=== PATIENT | female | born 1945 | race Asian ===

== ENCOUNTER 2019-02-24 13:29 | Inpatient (IN) | payer OTHER ==
[2019-02-24 14:47] LABS: ADD MAN DIFF? NO
[2019-02-24 14:52] LABS: BASOPHILS % 0.3 % (0.0-2.0); EOSINOPHILS # 0.1 10^3/ul (0.0-0.5); EOSINOPHILS % 0.8 % (0.0-7.0); HEMATOCRIT 27.7 % (37.0-47.0); HEMOGLOBIN 8.6 g/dl (12.0-16.0); LYMPHOCYTES # 2.1 10^3/ul (0.8-2.9); LYMPHOCYTES % 34.6 % (15.0-51.0); MEAN CORPUSCULAR HEMOGLOBIN 19.5 pg (29.0-33.0); MEAN PLATELET VOLUME 10.6 fl (7.4-10.4); MONOCYTE # 0.4 10^3/ul (0.3-0.9); MONOCYTES % 7.4 % (0.0-11.0); NEUTROPHIL # 3.4 10^3/ul (1.6-7.5); NEUTROPHILS % 56.6 % (39.0-77.0); PLATELET COUNT 343 10^3/UL (140-415); RED CELL DISTRIBUTION WIDTH 16.9 % (11.5-14.5)
[2019-02-24 14:57] LABS: POSITIVE DIFF @See below
[2019-02-24 15:12] LABS: ANION GAP 13 (5-13); BLOOD UREA NITROGEN 39 mg/dl (7-20); CALCIUM 9.8 mg/dl (8.4-10.2); CARBON DIOXIDE 34 mmol/L (21-31); CHLORIDE 97 mmol/L (97-110); GLUCOSE 108 mg/dl (70-220); SODIUM 144 mmol/L (135-144)
[2019-02-24 15:21] LABS: POTASSIUM 2.5 mmol/L (3.5-5.1)
[2019-02-24 15:23] LABS: TROPONIN-I 0.031 ng/ml (0.000-0.120)
[2019-02-24] MEDS: POTASSIUM CHLORIDE 100 ML IVPB (15:50)
[2019-02-24] MEDS: POTASSIUM CHLORIDE (SR) 20 MEQ TAB PO (15:50)
[2019-02-24] MEDS ORDERED: ACETAMINOPHEN 325 MG TAB PO (17:00)
[2019-02-24] MEDS ORDERED: ONDANSETRON 4 MG INJ IV ×2 (17:00→19:30)
[2019-02-24] MEDS: LABETALOL HCL 20MG INJ IV (18:22)
[2019-02-24] MEDS: SOD CHLORIDE 0.9% 1,000 ML IV (18:22)
[2019-02-24] MEDS ORDERED: BISACODYL (EC) 5 MG TAB PO (19:30)
[2019-02-24] MEDS ORDERED: ACETAMINOPHEN 650 MG SUPP PR (19:30)
[2019-02-24] MEDS ORDERED: DOCUSATE SODIUM 100 MG CAP PO (19:30)
[2019-02-24] MEDS ORDERED: MAGNESIUM HYDROXIDE 30ML CUP PO (19:30)
[2019-02-24] MEDS ORDERED: NACL 0.9% 3 ML SYG IV (19:30)
[2019-02-24 20:23] LABS: PARATHYROID HORMONE INTACT 177.4 pg/ml (7.5-53.5)
[2019-02-24] MEDS: hydrALAzine 20 MG INJ IV (21:47)
[2019-02-24] MEDS: NS + KCL 20 MEQ 1,000 ML IV (21:50)
[2019-02-25 00:54] LABS: ADD UMIC YES; UR ASCORBIC ACID NEGATIVE (NEGATIVE); UR BACTERIA FEW /HPF (NONE SEEN); UR BILIRUBIN (Dip) NEGATIVE (NEGATIVE); UR BLOOD (Dip) 1+ mg/dL (NEGATIVE); UR CLARITY CLEAR (CLEAR); UR COLOR COLORLESS (YELLOW); UR GLUCOSE (Dip) 1+ mg/dL (NEGATIVE); UR KETONES (Dip) NEGATIVE (NEGATIVE); UR LEUKOCYTE ESTERASE (Dip) NEGATIVE Leu/ul (NEGATIVE); UR NITRITE (Dip) NEGATIVE (NEGATIVE); UR RBC 14 /HPF (0-5); UR SPECIFIC GRAVITY (Dip) 1.005 (1.003-1.030); UR TOTAL PROTEIN (Dip) 1+ mg/dl (NEGATIVE); UR UROBILINOGEN (Dip) NEGATIVE (NEGATIVE); UR WBC 0 /HPF (0-5)
[2019-02-25 01:28] LABS: CREATININE,URINE RANDOM 15.09 mg/dl (20-320); PROTEIN/CREAT RATIO 5.43 RATIO
[2019-02-25 01:30] LABS: CREATININE,URINE RANDOM 14.88 mg/dl (20-320)
[2019-02-25 01:30] LABS: SODIUM,URINE RANDOM 96 mmol/L (30-90)
[2019-02-25 02:46] LABS: OSMOLALITY,URINE 270 mOsm/kg (250-1200)
[2019-02-25] MEDS: PANTOPRAZOLE (EC) 40 MG TAB PO (05:03)
[2019-02-25 08:21] LABS: ADD MAN DIFF? NO
[2019-02-25 08:25] LABS: BASOPHIL # 0.1 10^3/ul (0.0-0.1); BASOPHILS % 1.2 % (0.0-2.0); HEMOGLOBIN 7.8 g/dl (12.0-16.0); LYMPHOCYTES # 1.4 10^3/ul (0.8-2.9); LYMPHOCYTES % 35.8 % (15.0-51.0); MEAN CORPUSCULAR HEMOGLOBIN 19.5 pg (29.0-33.0); MEAN CORPUSCULAR HGB CONC 31.2 g/dl (32.0-37.0); MEAN CORPUSCULAR VOLUME 62.5 fl (82.0-101.0); MEAN PLATELET VOLUME 9.9 fl (7.4-10.4); MONOCYTE # 0.4 10^3/ul (0.3-0.9); MONOCYTES % 10.2 % (0.0-11.0); NEUTROPHIL # 2.1 10^3/ul (1.6-7.5); NEUTROPHILS % 51.8 % (39.0-77.0); PLATELET COUNT 345 10^3/UL (140-415); RED CELL DISTRIBUTION WIDTH 16.8 % (11.5-14.5)
[2019-02-25] MEDS: AMLODIPINE 5 MG TAB PO ×2 (08:34→20:48)
[2019-02-25] MEDS: LOSARTAN 50 MG TAB PO (08:34)
[2019-02-25] MEDS: hydrALAzine 20 MG INJ IV ×2 (08:34→17:01)
[2019-02-25 08:50] LABS: ALANINE AMINOTRANSFERASE 12 IU/L (13-69); ALBUMIN 3.8 g/dl (3.3-4.9); ALKALINE PHOSPHATASE 73 IU/L (42-121); ANION GAP 10 (5-13); ASPARTATE AMINO TRANSFERASE 32 IU/L (15-46); BILIRUBIN,INDIRECT 0.5 mg/dl (0-1.1); BILIRUBIN,TOTAL 0.5 mg/dl (0.2-1.3); BLOOD UREA NITROGEN 34 mg/dl (7-20); CALCIUM 9.5 mg/dl (8.4-10.2); CARBON DIOXIDE 31 mmol/L (21-31); CHLORIDE 107 mmol/L (97-110); CHOL/HDL RATIO 3.4 RATIO; CHOLESTEROL 212 mg/dl (100-200); CREATININE 1.81 mg/dl (0.44-1.00); GLUCOSE 95 mg/dl (70-220); HDL CHOLESTEROL 61 mg/dl (33-92); LDL CHOLESTEROL,CALCULATED 134 mg/dl; SODIUM 148 mmol/L (135-144); TOTAL PROTEIN 7.6 g/dl (6.1-8.1); TRIGLYCERIDES 86 mg/dl (0-149)
[2019-02-25 08:53] LABS: POTASSIUM 2.7 mmol/L (3.5-5.1)
[2019-02-25] MEDS: POTASSIUM CHLORIDE (SR) 20 MEQ TAB PO ×2 (10:34→21:09)
[2019-02-25] MEDS: POTASSIUM CHLORIDE 100 ML IVPB ×3 (11:30→17:06)
[2019-02-25] MEDS: NS + KCL 20 MEQ 1,000 ML IV ×2 (11:50→17:06)
[2019-02-25 18:09] LABS: POTASSIUM,URINE RANDOM 25.8 mmol/L (25-125)
[2019-02-25 19:47] LABS: POTASSIUM 2.8 mmol/L (3.5-5.1)
[2019-02-26] MEDS: hydrALAzine 20 MG INJ IV (03:44)
[2019-02-26] MEDS: PANTOPRAZOLE (EC) 40 MG TAB PO (05:11)
[2019-02-26 07:47] LABS: ANION GAP 8 (5-13); BLOOD UREA NITROGEN 31 mg/dl (7-20); CALCIUM 9.1 mg/dl (8.4-10.2); CARBON DIOXIDE 28 mmol/L (21-31); CHLORIDE 110 mmol/L (97-110); GLUCOSE 106 mg/dl (70-220); SODIUM 146 mmol/L (135-144)
[2019-02-26 07:53] LABS: POTASSIUM 2.8 mmol/L (3.5-5.1)
[2019-02-26] MEDS: POTASSIUM CHLORIDE (SR) 20 MEQ TAB PO ×2 (08:44→20:34)
[2019-02-26] MEDS: LOSARTAN 50 MG TAB PO (08:46)
[2019-02-26] MEDS: AMLODIPINE 5 MG TAB PO ×2 (08:46→20:35)
[2019-02-26] MEDS: POTASSIUM CHLORIDE 100 ML IVPB ×3 (12:12→17:56)
[2019-02-26 17:30] LABS: MAGNESIUM 1.9 mg/dl (1.7-2.5)
[2019-02-26] MEDS: NS + KCL 20 MEQ 1,000 ML IV (21:10)
[2019-02-27] MEDS: PANTOPRAZOLE (EC) 40 MG TAB PO (05:00)
[2019-02-27] MEDS: NS + KCL 20 MEQ 1,000 ML IV (05:01)
[2019-02-27 06:38] LABS: ADD MAN DIFF? NO
[2019-02-27 06:40] LABS: WHITE BLOOD COUNT 6.1 10^3/ul (4.8-10.8)
[2019-02-27 06:40] LABS: BASOPHILS % 0.3 % (0.0-2.0); EOSINOPHILS # 0.1 10^3/ul (0.0-0.5); EOSINOPHILS % 1.5 % (0.0-7.0); HEMOGLOBIN 7.5 g/dl (12.0-16.0); LYMPHOCYTES # 1.9 10^3/ul (0.8-2.9); LYMPHOCYTES % 31.3 % (15.0-51.0); MEAN CORPUSCULAR HEMOGLOBIN 19.3 pg (29.0-33.0); MEAN CORPUSCULAR HGB CONC 31.3 g/dl (32.0-37.0); MEAN CORPUSCULAR VOLUME 61.9 fl (82.0-101.0); MEAN PLATELET VOLUME 10.2 fl (7.4-10.4); MONOCYTE # 0.5 10^3/ul (0.3-0.9); MONOCYTES % 7.7 % (0.0-11.0); NEUTROPHIL # 3.6 10^3/ul (1.6-7.5); PLATELET COUNT 329 10^3/UL (140-415); RED BLOOD COUNT 3.88 10^6/ul (4.20-5.40); RED CELL DISTRIBUTION WIDTH 17.6 % (11.5-14.5)
[2019-02-27 07:09] LABS: IRON 66 ug/dl (35-150)
[2019-02-27 07:18] LABS: % IRON SATURATION 26 % SAT (22-52); TOTAL IRON BINDING CAPACITY 252 ug/dl (241-421)
[2019-02-27 07:22] LABS: ANION GAP 9 (5-13); BLOOD UREA NITROGEN 25 mg/dl (7-20); CALCIUM 9.3 mg/dl (8.4-10.2); CARBON DIOXIDE 24 mmol/L (21-31); CHLORIDE 114 mmol/L (97-110); CREATININE 1.95 mg/dl (0.44-1.00); GLUCOSE 103 mg/dl (70-220); POTASSIUM 3.5 mmol/L (3.5-5.1); SODIUM 147 mmol/L (135-144)
[2019-02-27 07:50] LABS: IONIZED CALCIUM 1.3 mmol/L (1.1-1.4)
[2019-02-27] MEDS: ENOXAPARIN 30 MG/0.3 ML SYG SC (09:00)
[2019-02-27] MEDS: LOSARTAN 50 MG TAB PO (09:24)
[2019-02-27] MEDS: AMLODIPINE 5 MG TAB PO ×2 (09:24→20:33)
[2019-02-27] MEDS: POTASSIUM CHLORIDE (SR) 20 MEQ TAB PO ×3 (09:24→20:33)
[2019-02-27] MEDS: hydrALAzine 20 MG INJ IV (11:37)
[2019-02-27 15:17] LABS: HAAIG REFLEX REFLEX FILED
[2019-02-27 16:03] LABS: COMPLEMENT C3 79 mg/dl (88-165); COMPLEMENT C4 31 mg/dl (14-44)
[2019-02-27 16:25] LABS: ERYTHROCYTE SEDIMENTATION RATE 45 mm/Hr (0-30)
[2019-02-27 16:26] LABS: HEPATITIS B SURFACE ANTIGEN NEGATIVE (NEGATIVE)
[2019-02-27 16:44] LABS: HEPATITIS B CORE ANTIBODY REACTIVE (NEGATIVE); HEPATITIS C VIRAL ANTIBODY NEGATIVE (NEGATIVE)
[2019-02-27] MEDS: SOD FERRIC GLUC COMPLX 125 MG in SOD CHLORIDE 0.9% 100 ML IVPB (17:18)
[2019-02-27] MEDS: EPOETIN ALFA-EPBX (ESRD) 4,000 UNIT/ML VIAL SC (17:28)
[2019-02-27 18:19] LABS: COLLECTION PERIOD 24 hrs
[2019-02-27 18:59] LABS: URINE POTASSIUM 25.4 mmol/l
[2019-02-27 19:01] LABS: URINE POTASSIUM 25.7 mmol/l
[2019-02-27 19:07] LABS: VOLUME 3100 mls
[2019-02-27 19:50] LABS: 24 HR POTASSIUM VOLUME 3100 mls; VOLUME 3100 mls
[2019-02-28] MEDS: PANTOPRAZOLE (EC) 40 MG TAB PO (05:04)
[2019-02-28 06:21] LABS: PROTEIN, TOTAL 7.1 g/dL (6.1-8.1)
[2019-02-28 08:17] LABS: ADD MAN DIFF? NO
[2019-02-28 08:19] LABS: BASOPHILS % 0.5 % (0.0-2.0); EOSINOPHILS # 0.1 10^3/ul (0.0-0.5); EOSINOPHILS % 1.1 % (0.0-7.0); HEMATOCRIT 24.4 % (37.0-47.0); HEMOGLOBIN 7.6 g/dl (12.0-16.0); LYMPHOCYTES # 1.9 10^3/ul (0.8-2.9); LYMPHOCYTES % 28.5 % (15.0-51.0); MEAN CORPUSCULAR HEMOGLOBIN 19.3 pg (29.0-33.0); MEAN CORPUSCULAR HGB CONC 31.1 g/dl (32.0-37.0); MEAN CORPUSCULAR VOLUME 62.1 fl (82.0-101.0); MONOCYTE # 0.5 10^3/ul (0.3-0.9); NEUTROPHIL # 4.1 10^3/ul (1.6-7.5); NEUTROPHILS % 62.6 % (39.0-77.0); PLATELET COUNT 327 10^3/UL (140-415); RED BLOOD COUNT 3.93 10^6/ul (4.20-5.40); RED CELL DISTRIBUTION WIDTH 17.2 % (11.5-14.5)
[2019-02-28 08:19] LABS: WHITE BLOOD COUNT 6.6 10^3/ul (4.8-10.8)
[2019-02-28 08:49] LABS: ANION GAP 11 (5-13); BLOOD UREA NITROGEN 29 mg/dl (7-20); CALCIUM 9.8 mg/dl (8.4-10.2); CARBON DIOXIDE 22 mmol/L (21-31); CHLORIDE 111 mmol/L (97-110); CREATININE 1.97 mg/dl (0.44-1.00); GLUCOSE 97 mg/dl (70-220); SODIUM 144 mmol/L (135-144)
[2019-02-28] MEDS: AMLODIPINE 5 MG TAB PO ×2 (08:58→20:48)
[2019-02-28] MEDS: LOSARTAN 50 MG TAB PO (08:58)
[2019-02-28] MEDS: POTASSIUM CHLORIDE (SR) 20 MEQ TAB PO ×3 (08:58→20:48)
[2019-02-28] MEDS: ENOXAPARIN 30 MG/0.3 ML SYG SC (09:02)
[2019-02-28] MEDS: SOD FERRIC GLUC COMPLX 125 MG in SOD CHLORIDE 0.9% 100 ML IVPB (13:16)
[2019-02-28 15:21] LABS: RAPID PLASMA REAGIN NONREACTIVE (NR)
[2019-02-28] MEDS: hydrALAzine 20 MG INJ IV (16:00)
[2019-03-01] MEDS: PANTOPRAZOLE (EC) 40 MG TAB PO (05:55)
[2019-03-01] MEDS: AMLODIPINE 5 MG TAB PO ×2 (09:16→20:43)
[2019-03-01] MEDS: LOSARTAN 50 MG TAB PO (09:17)
[2019-03-01] MEDS: POTASSIUM CHLORIDE (SR) 20 MEQ TAB PO ×3 (09:17→20:43)
[2019-03-01] MEDS: ENOXAPARIN 30 MG/0.3 ML SYG SC (09:19)
[2019-03-01] MEDS: SOD FERRIC GLUC COMPLX 125 MG in SOD CHLORIDE 0.9% 100 ML IVPB (12:51)
[2019-03-01 14:56] LABS: CHLORIDE, RANDOM URINE 83 mmol/L (32-290)
[2019-03-01 19:24] LABS: PROTIME 12.3 Sec (11.9-14.9)
[2019-03-01 19:25] LABS: PARTIAL THROMBOPLASTIN TIME 37.5 Sec (23.0-35.0)
[2019-03-01 20:27] LABS: ANA SCREEN NEGATIVE (NEGATIVE)
[2019-03-02] MEDS: PANTOPRAZOLE (EC) 40 MG TAB PO (06:00)
[2019-03-02] MEDS: POTASSIUM CHLORIDE (SR) 20 MEQ TAB PO ×3 (09:35→20:33)
[2019-03-02] MEDS: AMLODIPINE 5 MG TAB PO ×2 (09:36→20:32)
[2019-03-02] MEDS: LOSARTAN 50 MG TAB PO (09:37)
[2019-03-02 11:11] LABS: ALDOSTERONE 5 ng/dL
[2019-03-02] MEDS: SOD CHLORIDE 0.9% 500 ML (12:20)
[2019-03-02] MEDS: LIDOCAINE 1% (MDV) 20 ML INJ (12:30)
[2019-03-02] MEDS: FENTAnyl 50 MCG/ML VIAL (12:30)
[2019-03-02] MEDS: MIDAZOLAM 1 MG/ML 2 ML INJ (12:32)
[2019-03-02] MEDS: GELATIN 12MM X 7 MM SPONGE (13:00)
[2019-03-02] MEDS: SOD FERRIC GLUC COMPLX 125 MG in SOD CHLORIDE 0.9% 100 ML IVPB (13:56)
[2019-03-02 15:14] LABS: ALBUMIN 3.8 g/dL (3.8-4.8); ALPHA-1-GLOBULINS 0.3 g/dL (0.2-0.3); ALPHA-2-GLOBULINS 0.7 g/dL (0.5-0.9); BETA 2 GLOBULINS 0.4 g/dL (0.2-0.5); BETA GLOBULINS 0.4 g/dL (0.4-0.6); GAMMA GLOBULINS 1.6 g/dL (0.8-1.7)
[2019-03-02] MEDS: ACETAMINOPHEN 325 MG TAB PO (18:06)
[2019-03-02 18:44] LABS: HEMATOCRIT 23.1 % (37.0-47.0); HEMOGLOBIN 7.4 g/dl (12.0-16.0)
[2019-03-03 05:41] LABS: ADD MAN DIFF? NO
[2019-03-03 05:44] LABS: WHITE BLOOD COUNT 7.8 10^3/ul (4.8-10.8)
[2019-03-03 05:45] LABS: BASOPHILS % 0.4 % (0.0-2.0); EOSINOPHILS # 0.1 10^3/ul (0.0-0.5); EOSINOPHILS % 1.2 % (0.0-7.0); HEMATOCRIT 23.3 % (37.0-47.0); HEMOGLOBIN 7.3 g/dl (12.0-16.0); LYMPHOCYTES # 1.9 10^3/ul (0.8-2.9); LYMPHOCYTES % 24.5 % (15.0-51.0); MEAN CORPUSCULAR HEMOGLOBIN 19.5 pg (29.0-33.0); MEAN CORPUSCULAR HGB CONC 31.3 g/dl (32.0-37.0); MEAN CORPUSCULAR VOLUME 62.3 fl (82.0-101.0); MEAN PLATELET VOLUME 9.7 fl (7.4-10.4); MONOCYTE # 0.9 10^3/ul (0.3-0.9); MONOCYTES % 12.1 % (0.0-11.0); NEUTROPHIL # 4.8 10^3/ul (1.6-7.5); NEUTROPHILS % 61.3 % (39.0-77.0); NUCLEATED RED BLOOD CELLS # 0.1 10^3/ul (0.0-0.0); NUCLEATED RED BLOOD CELLS% 0.6 /100WBC (0.0-0.0); PLATELET COUNT 345 10^3/UL (140-415); RED BLOOD COUNT 3.74 10^6/ul (4.20-5.40); RED CELL DISTRIBUTION WIDTH 17.4 % (11.5-14.5)
[2019-03-03] MEDS: PANTOPRAZOLE (EC) 40 MG TAB PO (05:50)
[2019-03-03 06:19] LABS: ANION GAP 10 (5-13); BLOOD UREA NITROGEN 34 mg/dl (7-20); CALCIUM 9.3 mg/dl (8.4-10.2); CARBON DIOXIDE 20 mmol/L (21-31); CHLORIDE 111 mmol/L (97-110); CREATININE 2.42 mg/dl (0.44-1.00); GLUCOSE 100 mg/dl (70-220); POTASSIUM 5.4 mmol/L (3.5-5.1); SODIUM 141 mmol/L (135-144)
[2019-03-03] MEDS: AMLODIPINE 5 MG TAB PO ×2 (08:34→21:33)
[2019-03-03] MEDS: LOSARTAN 50 MG TAB PO (08:35)
[2019-03-03] MEDS: POTASSIUM CHLORIDE (SR) 20 MEQ TAB PO ×2 (08:35→13:00)
[2019-03-03 12:06] LABS: POTASSIUM 5.4 mmol/L (3.5-5.1)
[2019-03-03] MEDS: SOD FERRIC GLUC COMPLX 125 MG in SOD CHLORIDE 0.9% 100 ML IVPB (13:04)
[2019-03-03] MEDS: BISACODYL (EC) 5 MG TAB PO (18:24)
[2019-03-03] MEDS: PEG/ELECTROLYTES 4L BTL PO (18:40)
[2019-03-03 20:15] LABS: OCCULT BLOOD STOOL NEGATIVE (NEGATIVE)
[2019-03-04] MEDS: BISACODYL (EC) 5 MG TAB PO (05:36)
[2019-03-04] MEDS: PANTOPRAZOLE (EC) 40 MG TAB PO (05:36)
[2019-03-04] MEDS: PEG/ELECTROLYTES 4L BTL PO (06:07)
[2019-03-04 07:22] LABS: ADD MAN DIFF? NO
[2019-03-04 07:27] LABS: RETICULOCYTE RBC 3.63; WHITE BLOOD COUNT 7.8 10^3/ul (4.8-10.8)
[2019-03-04 07:27] LABS: BASOPHILS % 0.5 % (0.0-2.0); EOSINOPHILS # 0.1 10^3/ul (0.0-0.5); EOSINOPHILS % 0.9 % (0.0-7.0); HEMATOCRIT 22.6 % (37.0-47.0); HEMOGLOBIN 7.2 g/dl (12.0-16.0); LYMPHOCYTES # 1.7 10^3/ul (0.8-2.9); LYMPHOCYTES % 21.6 % (15.0-51.0); MEAN CORPUSCULAR HEMOGLOBIN 19.7 pg (29.0-33.0); MEAN CORPUSCULAR HGB CONC 31.9 g/dl (32.0-37.0); MEAN CORPUSCULAR VOLUME 61.7 fl (82.0-101.0); MONOCYTE # 0.8 10^3/ul (0.3-0.9); MONOCYTES % 10.4 % (0.0-11.0); NEUTROPHIL # 5.2 10^3/ul (1.6-7.5); NEUTROPHILS % 66.2 % (39.0-77.0); NUCLEATED RED BLOOD CELLS% 0.4 /100WBC (0.0-0.0); PLATELET COUNT 389 10^3/UL (140-415); RED BLOOD COUNT 3.66 10^6/ul (4.20-5.40); RED CELL DISTRIBUTION WIDTH 17.8 % (11.5-14.5); RETICULOCYTE COUNT # 0.085 X10^6 (0.020-0.110); RETICULOCYTE COUNT % 2.3 % (0.5-1.5)
[2019-03-04 07:50] LABS: ANION GAP 10 (5-13); BLOOD UREA NITROGEN 36 mg/dl (7-20); CALCIUM 9.5 mg/dl (8.4-10.2); CARBON DIOXIDE 24 mmol/L (21-31); CHLORIDE 112 mmol/L (97-110); CREATININE 2.22 mg/dl (0.44-1.00); GLUCOSE 115 mg/dl (70-220); POTASSIUM 3.8 mmol/L (3.5-5.1); SODIUM 146 mmol/L (135-144)
[2019-03-04 07:54] LABS: PHOSPHORUS 4.1 mg/dl (2.5-4.9)
[2019-03-04] MEDS: LOSARTAN 50 MG TAB PO (08:42)
[2019-03-04] MEDS: AMLODIPINE 5 MG TAB PO ×2 (08:42→20:48)
[2019-03-04 08:56] LABS: FOLATE 14.5 ng/ml (2.8-20.0)
[2019-03-04] MEDS ORDERED: FENTAnyl 50 MCG/ML VIAL IV (15:30)
[2019-03-04] MEDS ORDERED: ONDANSETRON 4 MG INJ IV (15:30)
[2019-03-04] MEDS ORDERED: FENTAnyl 50 MCG/ML VIAL (15:35)
[2019-03-04] MEDS ORDERED: PROPOFOL 20 ML (15:35)
[2019-03-04] MEDS: POTASSIUM CHLORIDE (SR) 20 MEQ TAB PO (20:48)
[2019-03-05 04:54] LABS: ADD MAN DIFF? NO
[2019-03-05 05:03] LABS: BASOPHILS % 0.2 % (0.0-2.0); EOSINOPHILS # 0.1 10^3/ul (0.0-0.5); EOSINOPHILS % 0.6 % (0.0-7.0); HEMATOCRIT 23.2 % (37.0-47.0); HEMOGLOBIN 7.5 g/dl (12.0-16.0); LYMPHOCYTES # 1.5 10^3/ul (0.8-2.9); MEAN CORPUSCULAR HEMOGLOBIN 19.9 pg (29.0-33.0); MEAN CORPUSCULAR HGB CONC 32.3 g/dl (32.0-37.0); MEAN CORPUSCULAR VOLUME 61.5 fl (82.0-101.0); MEAN PLATELET VOLUME 9.3 fl (7.4-10.4); MONOCYTE # 0.8 10^3/ul (0.3-0.9); MONOCYTES % 9.4 % (0.0-11.0); NEUTROPHIL # 5.6 10^3/ul (1.6-7.5); NEUTROPHILS % 70.4 % (39.0-77.0); NUCLEATED RED BLOOD CELLS% 0.4 /100WBC (0.0-0.0); PLATELET COUNT 391 10^3/UL (140-415); RED BLOOD COUNT 3.77 10^6/ul (4.20-5.40); RED CELL DISTRIBUTION WIDTH 17.8 % (11.5-14.5)
[2019-03-05 05:21] LABS: PHOSPHORUS 5.2 mg/dl (2.5-4.9)
[2019-03-05 05:21] LABS: MAGNESIUM 1.9 mg/dl (1.7-2.5)
[2019-03-05 05:28] LABS: ANION GAP 12 (5-13); BLOOD UREA NITROGEN 33 mg/dl (7-20); CALCIUM 9.3 mg/dl (8.4-10.2); CARBON DIOXIDE 22 mmol/L (21-31); CHLORIDE 109 mmol/L (97-110); CREATININE 2.23 mg/dl (0.44-1.00); GLUCOSE 110 mg/dl (70-220); POTASSIUM 3.2 mmol/L (3.5-5.1); SODIUM 143 mmol/L (135-144)
[2019-03-05] MEDS: PANTOPRAZOLE (EC) 40 MG TAB PO (05:57)
[2019-03-05] MEDS: LOSARTAN 50 MG TAB PO (08:40)
[2019-03-05] MEDS: POTASSIUM CHLORIDE (SR) 20 MEQ TAB PO (08:40)
[2019-03-05] MEDS: AMLODIPINE 5 MG TAB PO (08:41)
== END 2019-03-05 16:00 | disposition home or self-care (01) | DRG 683 ==
LOC: PP2 02-28 14:40 → E/R 13:29 → TEL 16:41
PROC: 0DJ08ZZ Inspection of Upper Intestinal Tract, Via Natural or Artificial Opening Endoscopic (ICD-10-PCS; principal; 2019-03-04 15:00)
PROC: 0DJD8ZZ Inspection of Lower Intestinal Tract, Via Natural or Artificial Opening Endoscopic (ICD-10-PCS; 2019-03-04 15:00)
PROC: 0TB03ZX Excision of Right Kidney, Percutaneous Approach, Diagnostic (ICD-10-PCS; 2019-03-04 15:15)
DX: I12.9 Hypertensive chronic kidney disease with stage 1 through stage 4 chronic kidney disease, or unspecified chronic kidney disease (principal); N17.9 Acute kidney failure, unspecified; N25.81 Secondary hyperparathyroidism of renal origin; B19.10 Unspecified viral hepatitis B without hepatic coma; E87.6 Hypokalemia; N18.9 Chronic kidney disease, unspecified; I16.0 Hypertensive urgency; N28.1 Cyst of kidney, acquired; E87.5 Hyperkalemia; D63.1 Anemia in chronic kidney disease
CPT/HCPCS: 76775; 77012; 80048; 80053; 80061; 81001; 81003; 82088; 82270; 82330; 82436; 82570; 82607; 82652; 82746; 83540; 83735; 83935; 83970; 84100; 84132; 84133; 84155; 84156; 84165; 84166; 84244; 84300; 84484; 84560; 85014; 85018; 85025; 85045; 85610; 85651; 85730; 86038; 86160; 86320; 86325; 86592; 86704; 86709; 86803; 86850; 86900; 86901; 86920; 87340; 93005; 96374; 99285-25